=== PATIENT | male | born 1980 | race Caucasian/White ===

== ENCOUNTER 2018-12-14 10:39 | Emergency (ER) | payer MEDICAID, OTHER ==
[~2018-12-14] VITALS: Ht 198.1 cm; Wt 79.5 kg
[2018-12-14 10:47] VITALS: BP 103/64
--- NOTE | 2018-12-14 10:57 | NUR ---
leg brace left knee and marily around knee, and right foot in boot, pt brought back in wheelchair. Not removing anything till provider gives okay.
== END 2018-12-14 13:07 | disposition home or self-care (01) ==
LOC: ER 10:40
DX: S82.401A Unspecified fracture of shaft of right fibula, initial encounter for closed fracture (principal); S82.201A Unspecified fracture of shaft of right tibia, initial encounter for closed fracture; S82.002A Unspecified fracture of left patella, initial encounter for closed fracture; F12.90 Cannabis use, unspecified, uncomplicated; Z98.890 Other specified postprocedural states; Z88.6 Allergy status to analgesic agent; V09.9XXA Pedestrian injured in unspecified transport accident, initial encounter; Y93.89 Activity, other specified; Y92.410 Unspecified street and highway as the place of occurrence of the external cause; Y99.8 Other external cause status
CPT/HCPCS: 73560; 73590; 99284

== ENCOUNTER 2021-06-23 19:24 | Emergency (ER) | payer MEDICAID ==
[~2021-06-23] VITALS: Ht 198.1 cm; Wt 77.7 kg
[2021-06-23 19:30] VITALS: BP 107/66
== END 2021-06-23 21:04 | disposition home or self-care (01) ==
LOC: ER 19:25
DX: S61.211A Laceration without foreign body of left index finger without damage to nail, initial encounter (principal); F12.90 Cannabis use, unspecified, uncomplicated; Z72.89 Other problems related to lifestyle; Z87.81 Personal history of (healed) traumatic fracture; Z88.8 Allergy status to other drugs, medicaments and biological substances; W26.0XXA Contact with knife, initial encounter; Y93.89 Activity, other specified; Y92.89 Other specified places as the place of occurrence of the external cause; Y99.8 Other external cause status
CPT/HCPCS: 12002; 99282